=== PATIENT | male | born 1965 | race American Indian/Alaskan Native ===

== ENCOUNTER 2017-07-05 22:30 | Emergency (ER) | payer SELFPAY ==
[2017-07-05 22:34] VITALS: BP 126/67
[2017-07-05] MEDS ORDERED: PEPCID PO ONE (23:04)
[2017-07-05] MEDS ORDERED: BENADRYL PO ONE (23:04)
== END 2017-07-05 23:42 | disposition left against medical advice (07) ==
LOC: ED 22:30
DX: T78.40XA Allergy, unspecified, initial encounter (principal); X58.XXXA Exposure to other specified factors, initial encounter; Y93.89 Activity, other specified; Y99.8 Other external cause status; Y92.89 Other specified places as the place of occurrence of the external cause; Z53.21 Procedure and treatment not carried out due to patient leaving prior to being seen by health care provider
CPT/HCPCS: J2930

== ENCOUNTER 2019-03-30 13:16 | Emergency (ER) | payer SELFPAY ==
[2019-03-30 14:22] VITALS: BP 142/88
--- NOTE | 2019-03-30 14:26 | Event Note ---
ED Screening Note Date of service: 03/30/19 Time: 14:25 ED Screening Note: 54 y/o male c/o in dizziness N/V BROWN seeing floaters that are intermittent. No chest pain. PMH none, This initial assessment/diagnostic orders/clinical plan/treatment(s) is/are subject to change based on patients health status, clinical progression and re- assessment by fellow clinical providers in the ED. Further treatment and workup at subsequent clinical providers discretion. Patient/guardian urged not to elope from the ED as their condition may be serious if not clinically assessed and managed. Initial orders include:
[2019-03-30 14:58] LABS: Basophils # (Auto) 0.1 K/mm3 (0.0-0.1); Basophils % (Auto) 0.5 % (0.0-1.8); Eosinophils # (Auto) 0.2 K/mm3 (0.0-0.4); Eosinophils % (Auto) 1.1 % (0.0-4.3); Hematocrit 43.9 % (35.5-45.6); Hemoglobin 14.7 gm/dl (11.8-15.2); Lymphocytes # (Auto) 2.4 K/mm3 (1.2-5.4); Lymphocytes % (Auto) 17.2 % (13.4-35.0); Mean Corpuscular HGB Conc 34 % (32-34); Mean Corpuscular Volume 99 fl (84-94); Monocytes # (Auto) 0.7 K/mm3 (0.0-0.8); Monocytes % (Auto) 4.7 % (0.0-7.3); Platelet Count 289 K/mm3 (140-440); Red Blood Count 4.42 M/mm3 (3.65-5.03); Red Cell Distribution Width 12.3 % (13.2-15.2)
[2019-03-30 15:20] LABS: Alanine Aminotransferase 25 units/L (7-56); Albumin 4.6 g/dL (3.9-5); BUN/Creatinine Ratio 11; Blood Urea Nitrogen 13 mg/dL (9-20); Calcium 9.6 mg/dL (8.4-10.2); Hemolysis Index 7
== END 2019-03-30 14:51 | disposition left against medical advice (07) ==
LOC: ED 13:16
DX: R42 Dizziness and giddiness (principal); Z53.21 Procedure and treatment not carried out due to patient leaving prior to being seen by health care provider
CPT/HCPCS: 36415; 80053; 84484; 85025; 93005; 93010

== ENCOUNTER 2019-07-13 20:10 | Emergency (ER) | payer SELFPAY ==
[2019-07-13 20:25] VITALS: BP 148/88
== END 2019-07-13 21:00 | disposition left against medical advice (07) ==
LOC: ED 20:10
DX: R07.9 Chest pain, unspecified (principal); Z53.21 Procedure and treatment not carried out due to patient leaving prior to being seen by health care provider